=== PATIENT | female | born 1985 | race Hispanic/Latino ===

== ENCOUNTER 2022-04-26 05:43 | Day surgery (SDC) | payer BC ==
[2022-04-25 12:50] LABS: BASOPHILS % (AUTO) 0.5 % (0.0-5.0); EOSINOPHILS % (AUTO) 0.3 % (0.0-8.0); LYMPHOCYTES % (AUTO) 22.5 % (21.0-51.0); MEAN CORPUSCULAR HEMOGLOBIN 32.4 pg (27.0-33.0); MEAN CORPUSCULAR HGB CONC 34.9 g/dL (32.0-36.0); MONOCYTES % (AUTO) 7.2 % (3.0-13.0); NEUTROPHILS % (AUTO) 69.2 % (40.0-77.0); PLATELET COUNT (AUTO) 275 K/uL (130-400); RED BLOOD CELL COUNT(AUTO) 4.41 MIL/uL (4.00-5.50); RED CELL DISTRIBUTION WIDTH 11.9 % (11.0-15.5); WHITE BLOOD COUNT (AUTO) 6.3 K/uL (4.8-10.8)
[2022-04-25 12:56] LABS: APPEARANCE,URINE Clear (CLEAR); BILIRUBIN,URINE Negative (NEGATIVE); COLOR,URINE Yellow (YELLOW); GLUCOSE, URINE (UA) Negative (NEGATIVE); KETONES,URINE Negative (NEGATIVE); LEUKOCYTE ESTERASE ,URINE Negative (NEGATIVE); NITRATE,URINE Negative (NEGATIVE); OCCULT BLOOD,URINE Negative (NEGATIVE); PROTEIN,URINE Negative (NEGATIVE); UROBILINOGEN,URINE 0.2 mg/dL (0.2-1.0)
[2022-04-25 13:00] LABS: INR 0.95 (0.85-1.15); PROTHROMBIN TIME 10.4 SEC (9.6-11.6)
[2022-04-25 13:01] LABS: PARTIAL THROMBOPLASTIN TIME 28.8 SEC (26.3-35.5)
[2022-04-25 13:09] VITALS: BP 96/53
[2022-04-26] VITALS (16 sets, daily range): BP systolic 91–114; BP diastolic 45–65
[~2022-04-26] VITALS: Ht 162.6 cm; Wt 60.3 kg
[~2022-04-26 05:43] MED LIST: LORA10CA PO; PREN1TAB89 PO
[2022-04-26] MEDS ORDERED: LACTATED RINGERS 1000ML 1,000 ML IV ONE (05:55)
[2022-04-26] MEDS ORDERED: ACETIC ACID 0.25% 1,000 ML IRRIG.SOLN ONE (06:39)
[2022-04-26] MEDS ORDERED: STRONG IODINE SOLN 14ML BOTTLE ONE (06:39)
[2022-04-26] MEDS ORDERED: DEXAMETHASONE SOD PHOSPHATE 10MG/ML 1ML VIAL ONE (06:48)
[2022-04-26] MEDS ORDERED: MIDAZOLAM HCL 1 MG/ML 2ML VIAL ONE (06:48)
[2022-04-26] MEDS ORDERED: PROPOFOL 10 MG/ML 20ML VIAL IV ONE (06:48)
[2022-04-26] MEDS ORDERED: LIDOCAINE PF 100MG/5ML (2%) SYRINGE 5ML ONE ×2 (06:48→06:49)
[2022-04-26] MEDS ORDERED: ONDANSETRON 4MG INJ ONE ×2 (06:48→07:46)
[2022-04-26] MEDS ORDERED: GLYCOPYRROLATE 1 MG/5 ML SYRINGE ONE (06:48)
[2022-04-26] MEDS ORDERED: SUCCINYLCHOLINE 200MG/10ML SYR ONE ×2 (06:48→06:49)
[2022-04-26] MEDS ORDERED: NEOSTIGMINE 5MG/5ML SYR IV ONE (06:48)
[2022-04-26] MEDS ORDERED: ROCURONIUM 10MG/1ML SYR 10 MG/ML ML ONE (06:48)
[2022-04-26] MEDS ORDERED: FENTANYL CITRATE PF 50 MCG/1 ML 2ML VIAL ONE (06:49)
[2022-04-26] MEDS ORDERED: MEPERIDINE-PF 25 MG/ML SYG ONE (07:05)
[2022-04-26] MEDS ORDERED: CEFAZOLIN SODIUM 1 GM VIAL IVP ONE (08:00)
[2022-04-26] MEDS ORDERED: LACTATED RINGERS 1000ML 1,000 ML IV SCH (08:00)
[2022-04-26] MEDS ORDERED: METOCLOPRAMIDE 10 MG/2 ML VIAL ONE (08:09)
== END 2022-04-26 09:15 | disposition home or self-care (01) ==
LOC: DAH 05:43
PROVIDERS: ATTEND Obstetrics & Gynecology
DX: R87.613 High grade squamous intraepithelial lesion on cytologic smear of cervix (HGSIL) (principal); Z79.01 Long term (current) use of anticoagulants; Z98.891 History of uterine scar from previous surgery; Z82.49 Family history of ischemic heart disease and other diseases of the circulatory system
CPT/HCPCS: 36415; 57520; 81003; 84703; 85025; 85610; 85730; 86850; 86900; 86901; 87635; A4215; A4221; A4222; A4223; A4351; A4663; A6260; C9803; J0330 ×2; J1100; J2001 ×2; J2175; J2250; J2405 ×2; J2704; J2710; J2765; J3010; J3490; J7120 ×2

== ENCOUNTER → 2025-11-18 | Outpatient (CLI) | payer BC ==
--- NOTE | 2025-11-18 13:14 | HMCIMG ---
STUDY: NM Gastric Emptying Study Solid Phase HISTORY: 40-year-old female outpatient with nausea, reflux, bloating, and early satiety. Clinical indication: abdominal distension. TECHNIQUE: After ingestion of a standardized solid meal labeled with [id number] sulfur colloid (approximately 1.5 mCi mixed with eggs), sequential anterior planar images of the stomach were acquired for approximately 90 minutes. Background and decay correction were applied. Gastric regions of interest were generated and timeactivity curves analyzed for quantitative assessment of gastric emptying. COMPARISON: None provided. FINDINGS: Initial images demonstrate appropriate radiotracer localization within the gastric lumen without evidence of esophageal retention or extra-gastric activity. Sequential imaging shows persistent retention of radiotracer within the stomach throughout the study duration, with minimal and delayed progression of tracer into the proximal small bowel. Timeactivity curve analysis demonstrates severely impaired gastric emptying kinetics. Quantitatively, only approximately 4 percent of the solid meal has emptied from the stomach at 89 minutes. The calculated gastric emptying half-time (T) is markedly prolonged at approximately 497 minutes, far exceeding established normal limits for solid-phase gastric emptying. There is no scintigraphic evidence of rapid early emptying or dumping physiology. IMPRESSION: * Severe delay in solid-phase gastric emptying, with markedly prolonged gastric half-time (T 497 minutes) and minimal emptying (approximately 4 percent) at 89 minutes, diagnostic of significant gastroparesis. * Degree of gastric retention is markedly abnormal and indicates profound gastric motor dysfunction rather than borderline or mild delay. * Scintigraphic findings provide a clear physiological correlate for the patients symptoms of early satiety, bloating, nausea, and reflux . /[place]
== END | disposition home or self-care (01) ==
LOC: RAH 07:40
PROVIDERS: ATTEND Internal Medicine
DX: K31.84 Gastroparesis (principal); R14.0 Abdominal distension (gaseous); R68.81 Early satiety; R10.30 Lower abdominal pain, unspecified; K31.89 Other diseases of stomach and duodenum
CPT/HCPCS: 78264; A9541